=== PATIENT | male | born 1960 | race Caucasian/White ===

== ENCOUNTER 2018-08-19 09:45 | Emergency (ER) | payer BC ==
[~2018-08-19] VITALS: Ht 180.3 cm; Wt 70.8 kg
[2018-08-19 09:50] VITALS: BP_SYST 110
[2018-08-19] MEDS ORDERED: NACL 0.9% 1,000 ML IV ONE (09:55)
[2018-08-19 10:26] LABS: BASOPHILS % (AUTO) 0.5 % (0.0-2.0); EOSINOPHILS # (AUTO) 0.1 K/uL (0.0-0.4); EOSINOPHILS % (AUTO) 2.2 % (0.0-4.0); HEMATOCRIT 49.9 % (36-54); HEMOGLOBIN 16.9 g/dL (14.0-18.0); LYMPHOCYTES # (AUTO) 1.2 K/uL (1.0-5.5); LYMPHOCYTES % (AUTO) 17.9 % (20.5-51.5); MEAN CORPUSCULAR HEMOGLOBIN 30 pg (27-31); MEAN CORPUSCULAR HGB CONC 34 % (32-36); MEAN CORPUSCULAR VOLUME 89 fL (79.0-98.0); MONOCYTES # (AUTO) 0.4 K/uL (0.0-1.0); MONOCYTES % (AUTO) 5.4 % (1.7-9.3); NEUTROPHILS # (AUTO) 4.9 K/uL (1.8-7.7); PLATELET COUNT (AUTO) 226 K/uL (130-430); RED BLOOD CELL COUNT(AUTO) 5.61 MIL/uL (4.2-6.2); RED CELL DISTRIBUTION WIDTH 12.4 % (9.0-15.0); WHITE BLOOD COUNT (AUTO) 6.6 K/uL (4.8-10.8)
[2018-08-19 10:44] LABS: CALCIUM 9.6 mg/dL (8.4-11.0); CREATININE 1.3 mg/dL (0.55-1.30); POTASSIUM 4.2 mmol/L (3.5-5.1)
[2018-08-19 10:45] LABS: PROTHROMBIN TIME 10.4 SECS (9.5-12.5)
[2018-08-19 10:51] LABS: ALBUMIN 4.5 g/dL (3.4-4.8); TOTAL BILIRUBIN 0.7 mg/dL (0.0-1.0)
[2018-08-19 13:23] LABS: BILIRUBIN,URINE NEGATIVE (NEGATIVE); CLARITY/URINE CLEAR (CLEAR); COLOR,URINE YELLOW (YELLOW); GLUCOSE,URINE NEGATIVE (NEGATIVE); KETONES,URINE NEGATIVE (NEGATIVE); LEUKOCYTE ESTERASE ,URINE NEGATIVE (NEGATIVE); NITRITE, URINE NEGATIVE (NEGATIVE); PROTEIN URINE NEGATIVE (NEGATIVE); UROBILINOGEN,URINE 0.2 (0.2-1.0)
[2018-08-19 13:26] VITALS: BP_SYST 104
[2018-08-19 13:31] LABS: BLOOD, URINE TRACE (NEGATIVE)
[2018-08-19 13:41] LABS: BACTERIA,URINE RARE /HPF (None Seen); MUCUS,URINE 1+ /LPF (None Seen); RBC,URINE 0-3 /HPF (0-3); WBC,URINE 0-3 /HPF (0-3)
== END 2018-08-19 13:26 | disposition home or self-care (01) ==
LOC: SED 09:45
DX: S20.212A Contusion of left front wall of thorax, initial encounter (principal); R03.0 Elevated blood-pressure reading, without diagnosis of hypertension; Z95.1 Presence of aortocoronary bypass graft; V29.9XXA Motorcycle rider (driver) (passenger) injured in unspecified traffic accident, initial encounter; Y93.89 Activity, other specified; Y92.410 Unspecified street and highway as the place of occurrence of the external cause; Y99.8 Other external cause status
CPT/HCPCS: 36415; 71045; 71250; 80053; 81000; 82550; 83690; 83880; 84484; 85025; 85610; 85730; 93005; 96360; 99284; J7030

== ENCOUNTER 2018-12-15 09:15 | Inpatient (IN) | payer BC ==
[~2018-12-15] VITALS: Ht 180.3 cm; Wt 72.6 kg
[2018-12-15 10:09] LABS: BILIRUBIN,URINE NEGATIVE (NEGATIVE); BLOOD, URINE 1+ (NEGATIVE); CLARITY/URINE CLEAR (CLEAR); COLOR,URINE YELLOW (YELLOW); GLUCOSE,URINE NEGATIVE (NEGATIVE); KETONES,URINE NEGATIVE (NEGATIVE); LEUKOCYTE ESTERASE ,URINE NEGATIVE (NEGATIVE); NITRITE, URINE NEGATIVE (NEGATIVE); PROTEIN URINE NEGATIVE (NEGATIVE); UROBILINOGEN,URINE 0.2 (0.2-1.0)
[2018-12-15 10:21] LABS: BASOPHILS % (AUTO) 0.5 % (0.0-2.0); EOSINOPHILS # (AUTO) 0.1 K/uL (0.0-0.4); EOSINOPHILS % (AUTO) 2.1 % (0.0-4.0); HEMATOCRIT 46.3 % (36-54); HEMOGLOBIN 15.8 g/dL (14.0-18.0); LYMPHOCYTES # (AUTO) 1.6 K/uL (1.0-5.5); LYMPHOCYTES % (AUTO) 25.3 % (20.5-51.5); MEAN CORPUSCULAR HEMOGLOBIN 30 pg (27-31); MEAN CORPUSCULAR HGB CONC 34 % (32-36); MEAN CORPUSCULAR VOLUME 88 fL (79.0-98.0); MONOCYTES # (AUTO) 0.4 K/uL (0.0-1.0); MONOCYTES % (AUTO) 6.6 % (1.7-9.3); NEUTROPHILS # (AUTO) 4.3 K/uL (1.8-7.7); NEUTROPHILS % (AUTO) 65.5 % (40.0-70.0); PLATELET COUNT (AUTO) 240 K/uL (130-430); RED BLOOD CELL COUNT(AUTO) 5.28 MIL/uL (4.2-6.2); RED CELL DISTRIBUTION WIDTH 13.1 % (9.0-15.0); WHITE BLOOD COUNT (AUTO) 6.5 K/uL (4.8-10.8)
[2018-12-15 10:24] LABS: CALCIUM 9.3 mg/dL (8.4-11.0); CREATININE 1.07 mg/dL (0.55-1.30); POTASSIUM 4.3 mmol/L (3.5-5.1)
[2018-12-15 10:31] LABS: BACTERIA,URINE RARE /HPF (None Seen); WBC,URINE 0-3 /HPF (0-3)
[2018-12-19] MEDS ORDERED: TRANEXAMIC ACID 1,000 MG/10 ML VIAL IV ONE ×2 (08:30→11:40)
[2018-12-19] MEDS ORDERED: CEFAZOLIN SOD 2 GM in D5W 50 ML IV ONE (08:30)
[2018-12-19] MEDS ORDERED: VANCOMYCIN HCL 1,000 MG in NS 250 ML IV ONE (08:30)
[2018-12-19] MEDS ORDERED: HYDR-4272 PO (09:51)
[2018-12-19] MEDS ORDERED: ASPI-1153 PO (09:51)
[2018-12-19] MEDS ORDERED: LR 1,000 ML IV.SOLN IV ONE (11:40)
[2018-12-19] MEDS ORDERED: SEVOFLURANE 15 MIN GAS INH ONE (11:40)
[2018-12-19] MEDS ORDERED: ROCURONIUM BROMIDE 10 MG/ML (ZEMURON) IV ONE (11:40)
[2018-12-19] MEDS ORDERED: MIDAZOLAM HCL 5 MG/5 ML VIAL IVP ONE (11:40)
[2018-12-19] MEDS ORDERED: ROPIVACAINE HCL/PF 5 MG/ML 0.5% 30 ML VIAL INFIL ONE (11:40)
[2018-12-19] MEDS ORDERED: ROPIVACAINE HCL/PF 0.2% (NAROPIN) 200 ML PLAST..BAG EP ONE ×2 (11:40)
[2018-12-19] MEDS ORDERED: fentaNYL CITRATE 250 MCG/5 ML AMP IV ONE (11:40)
[2018-12-19] MEDS ORDERED: ONDANSETRON HCL 4 MG/2 ML VIAL IVP ONE (11:40)
[2018-12-19] MEDS ORDERED: PROPOFOL 200MG/ 20ML VIAL (DIPRIVAN) IV ONE (11:40)
[2018-12-19] MEDS ORDERED: CEFAZOLIN 2 GM IVPB PREMIX 50 ML IV ONE (11:40)
[2018-12-19] MEDS ORDERED: KETOROLAC TROMETHAMINE 30 MG VIAL IVP ONE (11:40)
[2018-12-19] MEDS ORDERED: LR 500 ML IV.SOLN IV ONE (11:40)
[2018-12-19] MEDS ORDERED: POLYMYXIN 500,000/BACIT.10,000 UNITS in NS IRR 1 L IR ONE ×2 (11:43→12:28)
[2018-12-19] MEDS ORDERED: ONDANSETRON HCL 4 MG/2 ML VIAL IVP PRN ×3 (14:00→15:15)
[2018-12-19] MEDS ORDERED: DIPHENHYDRAMINE HCL 25 MG CAPSULE PO PRN (14:00)
[2018-12-19] MEDS ORDERED: HYDROcodone/ACETAMIN 7.5-325 MG TAB PO PRN (14:00)
[2018-12-19] MEDS ORDERED: HYDROmorphone 2 MG/ML VIAL IVP ONE (15:00)
[2018-12-19] MEDS ORDERED: HYDROmorphone 2 MG/ML VIAL ONE (15:05)
[2018-12-19] MEDS ORDERED: HYDROmorphone 1 MG INJ. 1 MG/ML AMPUL IVP PRN ×2 (15:15)
[2018-12-19] MEDS ORDERED: HYDROmorphone 2 MG/ML VIAL IVP PRN (15:15)
[2018-12-19] MEDS ORDERED: NALBUPHINE HCL 10 MG/ML AMP IVP PRN (15:15)
[2018-12-19] MEDS ORDERED: DIPHENHYDRAMINE INJ 50 MG/ML VIAL IVP PRN (15:15)
[2018-12-19] MEDS ORDERED: LR 1,000 ML IV SCH (15:15)
[2018-12-19 15:50] VITALS: BP_SYST 130
[2018-12-19 16:30] VITALS: BP_SYST 124
[2018-12-19] MEDS: ROPIVACAINE 0.2% 100 ML INJ SCH (16:51)
[2018-12-19] MEDS ORDERED: TRANEXAMIC ACID 1,000 MG in NS 50 ML IV ONE (17:00)
[2018-12-19] MEDS: KETOROLAC TROMETHAMINE 15 MG VIAL IVP SCH (17:51)
[2018-12-19] MEDS: D5/0.45 NS 1,000 ML IV SCH ×2 (17:54→21:57)
[2018-12-19 18:42] VITALS: BP_SYST 124
[2018-12-19] MEDS: SENNOSIDES 8.6 MG TABLET PO SCH (21:33)
[2018-12-20] VITALS (7 sets, daily range): BP systolic 120–136
[2018-12-20] MEDS: HYDROcodone/ACETAMIN 10-325 MG TAB PO PRN ×6 (01:48→23:37)
[2018-12-20] MEDS: D5/0.45 NS 1,000 ML IV SCH ×3 (05:42→21:57)
[2018-12-20] MEDS: ROPIVACAINE 0.2% 100 ML INJ SCH ×2 (05:42→23:20)
[2018-12-20] MEDS: KETOROLAC TROMETHAMINE 15 MG VIAL IVP SCH ×2 (05:42)
[2018-12-20 08:30] LABS: BASOPHILS % (AUTO) 0.1 % (0.0-2.0); EOSINOPHILS % (AUTO) 0.1 % (0.0-4.0); HEMATOCRIT 39.1 % (36-54); HEMOGLOBIN 13.3 g/dL (14.0-18.0); LYMPHOCYTES # (AUTO) 0.9 K/uL (1.0-5.5); LYMPHOCYTES % (AUTO) 7.3 % (20.5-51.5); MEAN CORPUSCULAR HEMOGLOBIN 30 pg (27-31); MEAN CORPUSCULAR HGB CONC 34 % (32-36); MEAN CORPUSCULAR VOLUME 88 fL (79.0-98.0); MONOCYTES # (AUTO) 0.7 K/uL (0.0-1.0); MONOCYTES % (AUTO) 5.4 % (1.7-9.3); NEUTROPHILS # (AUTO) 11.4 K/uL (1.8-7.7); NEUTROPHILS % (AUTO) 87.1 % (40.0-70.0); PLATELET COUNT (AUTO) 191 K/uL (130-430); RED BLOOD CELL COUNT(AUTO) 4.47 MIL/uL (4.2-6.2); RED CELL DISTRIBUTION WIDTH 13.4 % (9.0-15.0)
[2018-12-20 08:35] LABS: CALCIUM 8.3 mg/dL (8.4-11.0); CREATININE 1.1 mg/dL (0.55-1.30)
[2018-12-20] MEDS ORDERED: MULTIVITAMINS TAB 1 TABLET PO SCH (09:00)
[2018-12-20] MEDS: MULTIVITAMINS TAB 1 TABLET PO SCH (09:22)
[2018-12-20] MEDS: ASCORBIC ACID 500 MG TABLET PO SCH ×2 (09:23→23:36)
[2018-12-20] MEDS: FERROUS SULFATE 140 MG TABLET.ER PO SCH (09:23)
[2018-12-20] MEDS: RIVAROXABAN 10 MG TABLET PO SCH (09:26)
[2018-12-20] MEDS: SENNOSIDES 8.6 MG TABLET PO SCH (21:00)
[2018-12-21] MEDS: HYDROcodone/ACETAMIN 10-325 MG TAB PO PRN ×4 (03:37→21:07)
[2018-12-21 06:29] LABS: CREATININE 1.06 mg/dL (0.55-1.30); POTASSIUM 3.8 mmol/L (3.5-5.1)
[2018-12-21 06:32] LABS: BASOPHILS % (AUTO) 0.2 % (0.0-2.0); EOSINOPHILS % (AUTO) 0.2 % (0.0-4.0); HEMATOCRIT 41.1 % (36-54); HEMOGLOBIN 13.9 g/dL (14.0-18.0); LYMPHOCYTES # (AUTO) 1.4 K/uL (1.0-5.5); LYMPHOCYTES % (AUTO) 10.1 % (20.5-51.5); MEAN CORPUSCULAR HEMOGLOBIN 30 pg (27-31); MEAN CORPUSCULAR HGB CONC 34 % (32-36); MEAN CORPUSCULAR VOLUME 88 fL (79.0-98.0); MONOCYTES # (AUTO) 1.1 K/uL (0.0-1.0); MONOCYTES % (AUTO) 7.6 % (1.7-9.3); NEUTROPHILS # (AUTO) 11.4 K/uL (1.8-7.7); NEUTROPHILS % (AUTO) 81.9 % (40.0-70.0); PLATELET COUNT (AUTO) 201 K/uL (130-430); RED BLOOD CELL COUNT(AUTO) 4.67 MIL/uL (4.2-6.2); RED CELL DISTRIBUTION WIDTH 12.9 % (9.0-15.0); WHITE BLOOD COUNT (AUTO) 13.9 K/uL (4.8-10.8)
[2018-12-21 07:40] VITALS: BP_SYST 117
[2018-12-21] MEDS: MULTIVITAMINS TAB 1 TABLET PO SCH (08:35)
[2018-12-21] MEDS: ASCORBIC ACID 500 MG TABLET PO SCH ×2 (08:36→21:06)
[2018-12-21] MEDS: FERROUS SULFATE 140 MG TABLET.ER PO SCH (08:36)
[2018-12-21] MEDS: RIVAROXABAN 10 MG TABLET PO SCH (08:37)
[2018-12-21 14:01] VITALS: BP_SYST 126
[2018-12-21 16:35] VITALS: BP_SYST 130
[2018-12-21] MEDS ORDERED: SENNOSIDES 8.6 MG TABLET PO ONE (17:00)
[2018-12-21 20:03] VITALS: BP_SYST 112
[2018-12-21] MEDS: SENNOSIDES 8.6 MG TABLET PO SCH (21:06)
[2018-12-22 00:55] VITALS: BP_SYST 142
[2018-12-22] MEDS: HYDROcodone/ACETAMIN 10-325 MG TAB PO PRN ×3 (02:01→12:49)
[2018-12-22] MEDS: ASCORBIC ACID 500 MG TABLET PO SCH (08:30)
[2018-12-22] MEDS: MULTIVITAMINS TAB 1 TABLET PO SCH (08:30)
[2018-12-22] MEDS: FERROUS SULFATE 140 MG TABLET.ER PO SCH (08:30)
[2018-12-22 08:43] VITALS: BP_SYST 124
[2018-12-22] MEDS ORDERED: MAGNESIUM CITRATE 300 ML ORAL SOLUTION PO ONE (09:00)
[2018-12-22] MEDS: RIVAROXABAN 10 MG TABLET PO SCH (09:07)
[2018-12-22 09:27] VITALS: BP_SYST 124
[2018-12-22 13:26] VITALS: BP_SYST 107
[2018-12-22 13:36] VITALS: BP_SYST 110
[2018-12-22 14:00] VITALS: BP_SYST 119
== END 2018-12-22 15:18 | disposition home health service (06) | DRG 470 ==
LOC: SMU 09:15 → UNDOADMIN 09:15 → SMU 12-19 08:13
PROVIDERS: ADMIT Orthopaedic Surgery; ATTEND Orthopaedic Surgery
PROC: 0SRD0J9 Replacement of Left Knee Joint with Synthetic Substitute, Cemented, Open Approach (ICD-10-PCS; principal; 2018-12-19 11:30)
DX: M17.2 Bilateral post-traumatic osteoarthritis of knee (principal); G89.29 Other chronic pain
CPT/HCPCS: 36415; 73560-TC; 73700-TC; 80048; 81000-TC; 85025; 87081; 88305; 88311; 97110-GP; 97116-GP; 97530-GP; C1713; C1776; J0690; J1170; J1885; J2250; J2405; J2704; J2795; J3010; J3370; J3490; J7050; J7060; J7120